=== PATIENT | male | born 1970 | race Hispanic/Latino ===

== ENCOUNTER 2025-08-15 21:47 | Emergency (ER) | payer OTHER ==
[2025-08-15] MEDS ORDERED: Acetaminophen 500 MG TAB ONE (23:07)
[2025-08-15] MEDS ORDERED: Ketorolac Tromethamine 30 MG (1 mL) VIAL ONE (23:07)
[2025-08-15 23:12] LABS: ALT (SGPT) 25 U/L (Less than 45); AST (SGOT) 47 U/L (11-34); Albumin 2.6 g/dL (3.1-4.5); Alkaline Phosphatase 158 U/L (40-110); Anion Gap 14 mmol/L (10-20); BUN (Urea Nitrogen) 12 mg/dL (8.4-25.7); Bilirubin, Total 1.5 mg/dL (0.3-1.2); Calc. Creatinine Clearance 0 mL/min (70-130); Calcium 8.0 mg/dL (7.8-10.44); Carbon Dioxide 23 mmol/L (22-29); Chloride 105 mmol/L (98-107); Globulin 4.1 g/dL (2.4-3.5); Glucose 97 mg/dL (70-105); Potassium 3.3 mmol/L (3.5-5.1); Sodium 139 mmol/L (136-145)
[2025-08-15 23:40] LABS: #Basophils Less than 0.03 10x3/uL (0.0-0.2); #Eosinophils 0.16 10x3/uL (0.0-0.7); #Monocytes 0.80 10x3/uL (0.11-0.59); #Neutrophils 3.77 10x3/uL (1.40-6.50); %Basophils 0.3 % (0.0-1.0); %Eosinophils 2.6 % (0.0-10.0); %Lymphocytes 23.3 % (21.0-51.0); %Monocytes 12.9 % (0.0-10.0); %Neutrophils 60.6 % (42.0-75.0); Anisocytosis SLIGHT = 6-15 cells HPF (0-5); Hematocrit 35.7 % (42.0-52.0); Hemoglobin 12.3 g/dL (14.0-18.0); Macrocytosis SLIGHT = 6-15 cells HPF (0-5); Mean Corpuscular Hemoglobin 28.5 pg (27.0-31.0); Mean Corpuscular Volume 82.8 fL (78.0-98.0); Platelet Adequacy Comment Platelets Normal; Platelet Count 106 10x3/uL (130-400); Polychromasia SLIGHT = 2-3 cells HPF (0-2); Red Blood Cell (RBC) Count 4.31 mill/uL (4.70-6.10); White Blood Cell (WBC) Count 6.22 10x3/uL (4.8-10.8)
[2025-08-16] MEDS ORDERED: Dexamethasone 10 MG/ML VIAL ONE (00:17)
[2025-08-16] MEDS ORDERED: diphenhydrAMINE 50 MG/ML VIAL ONE (00:17)
[2025-08-16] MEDS ORDERED: Clindamycin 150 MG CAP ONE (01:17)
== END 2025-08-16 01:25 | disposition home or self-care (01) ==
LOC: ERS 21:47 → EEVIPCON 21:47 → ERS 08-16 01:25
DX: L03.116 Cellulitis of left lower limb (principal); K42.9 Umbilical hernia without obstruction or gangrene; L08.0 Pyoderma; E11.9 Type 2 diabetes mellitus without complications; I10 Essential (primary) hypertension; J21.9 Acute bronchiolitis, unspecified; Z79.899 Other long term (current) drug therapy
CPT/HCPCS: 80053; 85025; 96374; 96375; J1100; J1200; J1885